=== PATIENT | female | born 1990 | race Asian ===

== ENCOUNTER 2024-05-11 21:00 | Inpatient (IN) | payer BC, SELFPAY ==
[2024-05-11 21:18] LABS: Glucose - Point of Care 120 mg/dl (70-99)
[2024-05-11 21:19] VITALS: BP 114/72; BMI 31.1
[2024-05-11 21:37] LABS: % Basophils 0.3 % (0-2); % Eosinophils 0.4 % (0-6); % Immature Granulocytes 0.5 % (0-0.5); % Lymphocytes 29.5 % (20.5-51.1); % Monocytes 5.2 % (1.7-9.3); % Neutrophils 64.1 % (42.2-75.2); Absolute Immature Granulocytes 0.1 10^3/uL (0-0.05); Absolute Lymphocytes 3.2 10^3/uL (1.2-3.4); Absolute Monocytes 0.6 10^3/uL (0.1-0.6); Hematocrit 36.4 % (37.0-47.0); Hemoglobin 12.2 g/dL (12.0-16.0); Mean Corp Hgb Conc. 33.5 g/dL (33.0-37.0); Mean Corpuscular Volume 77.6 fL (81.0-99.0); Mean Platelet Volume 11.2 fL (7.4-10.4); Nucleated Red Blood Cells % 0 %; Platelet Count 260 10^3/uL (130-400); Red Blood Cell Count 4.69 10^6/uL (4.20-5.40); Red Cell Dist. Width 15.1 % (11.5-14.5); White Blood Cell Count 10.9 10^3/uL (4.8-10.8)
[2024-05-11] MEDS: PENICILLIN 110 UNITS IV (21:51)
[2024-05-11] MEDS: CELESTONE SOLUSPAN 2 MG IM (21:53)
[2024-05-11] MEDS: LR 1000 IV (21:57)
[2024-05-11] MEDS: PITOCIN 30 UNITS/NSS 500 ML IV (22:07)
[2024-05-11 22:28] LABS: Hepatitis B Surface Antigen Negative (Negative)
[2024-05-11 22:46] LABS: Hepatitis B Core Ab, Total Negative (Negative); Hepatitis B Surface Antibody Negative; Hepatitis C Antibody Negative (Negative)
[2024-05-12 05:22] LABS: Hematocrit 34.3 % (37.0-47.0); Hemoglobin 11.8 g/dL (12.0-16.0)
[2024-05-12] MEDS: PRENATAL PLUS 1 TABLET PO (08:36)
[2024-05-12] MEDS: SENOKOT-S 1 TABLET PO (08:36)
[2024-05-12 09:48] LABS: Glycohemoglobin (HgbA1c) 6.9 % (4.0-5.6)
[2024-05-12 19:15] LABS: Rubella Positive
[2024-05-13] MEDS: PRENATAL PLUS 1 TABLET PO (08:48)
[2024-05-13] MEDS: SENOKOT-S 1 TABLET PO (08:49)
[2024-05-13 15:52] LABS: Syphilis/T. pallidum Ab Reflex Negative (Negative)
[2024-05-13 16:03] LABS: HIV Combo Negative (Negative)
== END 2024-05-13 12:09 | disposition home or self-care (01) | DRG 807 ==
LOC: LDRP 21:00
PROVIDERS: ADMITTING PHYSICIAN Obstetrics & Gynecology
PROC: 10E0XZZ Delivery of Products of Conception, External Approach (ICD-10-PCS; 2024-05-12)
DX: O60.14X0 Preterm labor third trimester with preterm delivery third trimester, not applicable or unspecified (principal); Z37.0 Single live birth; O24.410 Gestational diabetes mellitus in pregnancy, diet controlled; Z3A.31 31 weeks gestation of pregnancy
CPT/HCPCS: 88307; 82962; 83036; 85014; 85018; 85025; 86704; 86706; 86762; 86780; 86803; 86850; 86900; 86901; 87086; 87340; 87389; 87491; 87591